=== PATIENT | female | born 1990 | race Two or more races ===

== ENCOUNTER → 2025-01-01 13:54 | Outpatient (CLI) | payer OTHER | END | disposition home or self-care (01) | LOC: PRENATAL 13:54 | PROVIDERS: ATTEND Obstetrics & Gynecology Maternal & Fetal Medicine | DX: O44.02 Complete placenta previa NOS or without hemorrhage, second trimester (principal); O09.523 Supervision of elderly multigravida, third trimester; Z3A.20 20 weeks gestation of pregnancy ==